=== PATIENT | male | born 1995 ===

== ENCOUNTER 2017-12-21 11:07 | Inpatient (IN) | payer OTHER ==
[~2017-12-21] VITALS: Ht 170.2 cm; Wt 72.6 kg
[2017-12-23] MEDS ORDERED: PREDNISONE20 MG PO (13:51)
[2017-12-23] MEDS ORDERED: AZITHROMYCIN250 MG PO (13:51)
[2017-12-23] MEDS ORDERED: ALBUTEROL2.5 MG/3 M IH (13:53)
== END 2017-12-23 14:22 | disposition home or self-care (01) | DRG 203 ==
LOC: ER 11:07 → SEC-K 22:06 → SURG 12-22 05:37
PROC: 4A033R1 Measurement of Arterial Saturation, Peripheral, Percutaneous Approach (ICD-10-PCS; principal; 2017-12-21)
PROC: 3E0F7GC Introduction of Other Therapeutic Substance into Respiratory Tract, Via Natural or Artificial Opening (ICD-10-PCS; 2017-12-21)
PROC: B246ZZZ Ultrasonography of Right and Left Heart (ICD-10-PCS; 2017-12-21)
DX: J45.31 Mild persistent asthma with (acute) exacerbation (principal); R07.89 Other chest pain; R09.02 Hypoxemia